=== PATIENT | female | born 1985 | race Caucasian/White ===

== ENCOUNTER 2020-06-23 15:51 | Outpatient (REF) | payer MEDICAID, SELFPAY ==
[2020-06-23 17:07] LABS: HCG Quant, Pregnancy 3681 mIU/mL (1-3)
== END 2020-06-23 16:11 ==
LOC: LBN 15:51
PROVIDERS: Visit Provider Nurse Practitioner Women's Health
DX: Z32.01 Encounter for pregnancy test, result positive (principal)
CPT/HCPCS: 84702

== ENCOUNTER 2020-06-25 02:52 | Outpatient (CLI) | payer MEDICAID, SELFPAY ==
[2020-06-25 13:34] LABS: HCG Quant, Pregnancy 6966 mIU/mL (1-3)
== END 2020-06-25 03:12 ==
PROVIDERS: Visit Provider Nurse Practitioner Women's Health
DX: N96 Recurrent pregnancy loss (principal); Z32.01 Encounter for pregnancy test, result positive
CPT/HCPCS: 36415; 84702

== ENCOUNTER 2020-07-12 00:30 | Outpatient (CLI) | payer MEDICAID, SELFPAY ==
--- NOTE | 2020-07-12 06:45 | DI.US_ITS ---
EXAM: US OB 1ST TRIMESTER CLINICAL HISTORY: viability,THREATENED MISCARRIAGE,020.0 TECHNIQUE: Ultrasound performed using standard protocol. COMPARISON: No exams were available for comparison FINDINGS: Dunia Powell cysts OB ultrasound July 12 Ob ultrasound was performed utilizing 1st trimester pro tocol. There is an abnormal appearing gestational sac with sac size out of proportion to size of the visible pole and a heterogeneous appearance of the trophoblastic.. Bastian-rump length measurem ents are consistent with gestational age of 6 weeks 2 days, no cardiac activity identified. Ovaries are unremarkable in appearance. IMPRESSION: Findings consistent with demise as described above. DATA REPOSITORY:
== END 2020-07-12 00:50 ==
PROVIDERS: Visit Provider Obstetrics & Gynecology
DX: O20.0 Threatened abortion (principal)
CPT/HCPCS: 76801

== ENCOUNTER 2020-07-12 07:27 | Outpatient (CLI) | payer MEDICAID, SELFPAY ==
[2020-07-12 10:48] LABS: Abs Immature Grans 0.05 10^3/uL (0.0-0.06); Absolute Basophil Count 0.04 10^3/uL (0.0-0.2); Absolute Lymphocyte Count 2.17 10^3/uL (1.2-3.4); Absolute Monocyte Count 0.46 10^3/uL (0.1-0.8); Absolute Neutrophil Count 6.47 10^3/uL (1.2-6.7); Basophils % 0.4; HCT 41.9 % (36.0-46.0); HGB 13.6 g/dL (11.2-15.7); Immature Grans % 0.5; Lymphocytes % 23.6; MCH 29.2 pg (27.0-33.0); MCHC 32.5 % (32.0-36.0); MCV 90.1 fL (80-95); MPV 10.4 fL (8.0-11.0); Neutrophils % 70.5; Nucleated RBC 0 %; Platelet Count 213 10^3/uL (130-400); RBC 4.65 10^6/uL (3.93-5.22); RDW 12.4 % (11.7-14.6); RDW-SD 40.6 fL; WBC 9.19 10^3/uL (4.4-10.8)
[2020-07-12 19:12] LABS: COVID-19 RT-PCR UVMMC Result Negative (Negative)
== END 2020-07-12 07:47 ==
PROVIDERS: Visit Provider Obstetrics & Gynecology
DX: O20.0 Threatened abortion (principal)
CPT/HCPCS: 36415; 86850; 86900; 86901; U0003; 76801; 85025

== ENCOUNTER 2020-07-14 06:13 | Day surgery (SDC) | payer MEDICAID, SELFPAY ==
--- NOTE | 2020-07-13 17:18 | W.PM.HP.N ---
Date of service: 07/13/20 Time of Service: 17:18 Assessment and Plan Assessment and plan (1) Recurrent loss: Status: Acute (2) Missed : Status: Acute Assessment and plan: Patient has had 3 previous miscarriages and has a spontaneous miscarriage today. Risks benefits of surgical intervention were explained to the patient including risk of infection, bleeding, injury to surrounding organs, risk of anesthesia. She has experienced miscarriage with dilation and curettage 3 times in the past and is from earlier with this. My plan is for dilation and curettage with suction preformed 07/14/2020. We will do karyotype of the products of conception as well. Her will need to be present for her in light of her emotional status and difficulty with this very difficult situation. History of Present Illness History of Present Illness Chief Complaint: Missed Review of Systems All systems reviewed & are unremarkable except as noted in HPI and below [facility] Medical History Early stage of (Acute) Recurrent loss (Acute) Threatened miscarriage in early (Acute) Surgical History H/O dilation and curettage (Acute) x3 (05/23/18, 01/23/19, 12/08/19 at [facility]) History of ankle surgery (Acute) 2005 and 2009 Family History Father Hypertension Maternal Grandfather Brain cancer Maternal Grandmother Heart disease Mother Hypertension Social History Smoking/Tobacco Use Status: Never Alcohol Intake: never Drug use: Never Substance use type: does not use Current gender identity: female Do you feel safe at home: Yes Do you feel safe in your relationship?: Yes Female Reproductive History Menstrual control method: none History History 3 Para 0 Hx # Term Pregnancies Multiple births Hx # Pregnancies Ectopic pregnancies AB induced Hx Number of Living Children AB spontaneous 3 Meds Home Medications and Allergies Home Medications Medication Instructions Recorded Confirmed Type folic acid 800 mcg tablet 0.8 mg PO DAILY 06/23/20 07/12/20 History prenat.vits,lily,[id number] 1 tab PO DAILY 06/23/20 07/12/20 History Allergies Allergy/AdvReac Type Severity Reaction Status Date / Time amoxicillin AdvReac Hives Verified 07/12/20 13:31 sulfamethoxazole AdvReac Hives Verified 07/12/20 13:31 [From Bactrim] trimethoprim [From Bactrim] AdvReac Hives Verified 07/12/20 13:31 Exam Const General: cooperative, healthy appearing, comfortable and no acute distress Nutritional Appearance: average body habitus and well nourished Orientation: alert HENMT Head: normal to inspection Ears: hearing grossly normal bilaterally Eyes General: appearance normal, both eyes and all related structures Neck Neck: normal visual inspection Thyroid: thyroid normal, not diffusely enlarged and no masses Chest Chest: normal inspection of the chest Breast inspection: normal inspection of the breasts and normal inspection of the axillae Breast palpation: normal palpation of the breasts, normal palpation of the axillae and no axillary lymphadenopathy Resp Effort & Inspection: normal respiratory effort Auscultation: clear to auscultation bilaterally, no rales, no rhonchi and no wheezes Cardio Jugular venous pressure: no JVD Palpation: normal PMI Rate: regular rate Heart Sounds: S1 normal, S2 normal and no murmurs GI Inspection: normal to inspection and non-distended Palpation: soft and no hepatosplenomegaly Auscultation: normal bowel sounds External Female Exam: normal external appearance, normal appearance of the urethra and no lesions Speculum Exam - Vagina: normal appearance of the vagina and normal vaginal discharge Speculum Exam - Cervix: normal appearance of the cervix and nontender Bimanual Exam- Vagina & Uterus: normal bimanual exam, uterine size normal, consistency normal, normal palpation, No tender, non-tender and no cervical motion tenderness Bimanual Exam- Adnexa, other: normal adnexae, no masses and normal Other: Pelvic ultrasound was performed at date of office visit with intrauterine at 6 weeks 5 days without evidence of cardiac activity. Repeat ultrasound performed in diagnostic imaging on 824 confirms irregular gestational sac with intrauterine with no cardiac activity. COVID-19 Screening Have you,or household,traveled outside [place] in last 14 days?: No Had IN PERSON contact w/suspected or confirmed C-19 person: No
[2020-07-14 06:25] VITALS: BP 111/74; PULSE 83; RESP 16; TEMP 36.2; O2SAT 99
[2020-07-14] MEDS: Lactated Ringers 1,000 ML 125 ML IV (06:50)
[2020-07-14] MEDS: DOXYCYCLINE 100 MG in Normal Saline 100 ML IVPB (07:10)
[2020-07-14] MEDS: Silver Nitrate Stick 1 EACH (07:54)
--- NOTE | 2020-07-14 08:00 | POCSPONT_PTH ---
PATIENT: Dunia Powell LOC: [facility] U#:[id number] AGE/SX: 34/F ROOM: RE07/14/[address]: Stephanie Sandra DO : 1985 BED: DIS: 07/14/2020 SPEC #: [id number] RECD: 07/14/20 12:41 STATUS: CINDY REQ #: [id number] JILLIAN: 07/14/20 08:[address]: Stephanie Sandra DEPT: Surgical Specimen RECD BY: Mckenzie Grubbs ENTERED: 07/14/20 12:43 SP TYPE: POCSPONT OTHR DR: Estefani Rodegrs Tissues: 1 - ,SPONTANEOUS CHROMOSOME ANALYSIS PROFILE Procedures: GROSS AND MICRO LEVEL 4 CHROMOSOME ANALYSIS 15-20 CELLS CHROMOSOME ANALYSIS TISSUE CULTURE Comments: [id number] (CYTOGENETICS - [id number])
--- NOTE | 2020-07-14 08:05 | ROE_ITS ---
Date of service: 07/14/20 Time of Service: 08:05 Operative Note Operative Note DATE OF PROCEDURE: 07/14/20 PRE-OP DIAGNOSIS: Missed at 6 weeks, recurrent loss POST-OP DIAGNOSIS: same PROCEDURE: Dilation and curettage with suction SURGEON: Stephanie Sandra ANESTHESIA: GETA ESTIMATED BLOOD LOSS: 20 PATHOLOGY: other (Uterine contents for gross, micro and karyotype) COMPLICATIONS: None Patient was transported to: PACU Patient's condition: stable Implants: None Indications: Missed at 6 weeks Findings: Moderate products of conception Procedure Description: Patient is a 34-year-old female 4 para 0-0-3-0 6 weeks and 3 days. She has a known missed miscarriage. She has a history of recurrent loss with 3 previous dilation curettage around the same gestational age. Ultrasound had confirmed intrauterine demise. Patient had preoperative testing including COVID which was negative. Risks, benefits, and alternatives of the procedure were explained to the patient quitting risk of infection, bleeding, injury to surrounding organs, risk of anesthesia. Full informed consent was obtained. Patient was taken the operating suite with an IV running where she is placed in dorsal supine position. Endotracheal intubation performed for the administration of general anesthesia with ease. She was then placed in the modified dorsal lithotomy position in [facility] stirrups and prepped and draped in the usual sterile fashion. Exam under anesthesia revealed a uterus that was small approximately 6 weeks gestation. Speculum was placed into the vaginal vault and an initially Allis clamp used to grasp the anterior lip of the cervix without good result change to a single-tooth tenaculum. Cervical loss dilated to the point that an 8 Salvadorean suction catheter could be passed with ease. With gentle suction curettage the entire uterine cavity was evacuated. At this point sharp curettage was performed to the point that the coarse cry of the uterus could be felt in all 4 quadrants of the uterine cavity was smooth and regular. A second pass of the suction curette was performed for scant blood present. At this point procedure was terminated single-tooth tenaculum was removed 1 site was non-hemostatic which was cauterized with silver nitrate and found to be hemostatic. Speculum removed and patient taken to recovery room after awakening from anesthesia and returned to the dorsal supine position. Findings: Uterine contents appropriate for gestational age Complications: None apparent EBL: 25 cc
[2020-07-14] MEDS: oxyCODONE 5 mg/Acetaminophen 325 mg TAB PO (08:19)
[2020-07-14 08:42] VITALS: BP 124/74; PULSE 70; RESP 16; TEMP 36.3; O2SAT 100
== END 2020-07-14 09:15 | disposition home or self-care (01) ==
PROVIDERS: PCP Nurse Practitioner Adult Health; Visit Provider Obstetrics & Gynecology
PROC: (CPT 59841; principal; 2020-07-14 07:30)
DX: O02.1 Missed abortion (principal); N96 Recurrent pregnancy loss
CPT/HCPCS: 59820; 88305; NC; 88233; 88262; J1885; J2001; J2250; J2405; J3010

== ENCOUNTER 2020-12-20 04:23 | Outpatient (CLI) | payer MEDICAID, SELFPAY ==
[2020-12-20 15:53] LABS: HCG Quant, Pregnancy 63314 mIU/mL (1-3)
== END 2020-12-20 04:43 ==
PROVIDERS: PCP Nurse Practitioner Adult Health; Visit Provider Obstetrics & Gynecology
DX: O26.21 Pregnancy care for patient with recurrent pregnancy loss, first trimester (principal); Z3A.01 Less than 8 weeks gestation of pregnancy
CPT/HCPCS: 36415; 84144; 84702

== ENCOUNTER 2021-02-04 03:06 | Outpatient (CLI) | payer MEDICAID, SELFPAY ==
[2021-02-04 14:57] LABS: Abs Immature Grans 0.08 10^3/uL (0.0-0.06); Absolute Basophil Count 0.04 10^3/uL (0.0-0.2); Absolute Monocyte Count 0.59 10^3/uL (0.1-0.8); Basophils % 0.4; HCT 38.4 % (36.0-46.0); HGB 13.1 g/dL (11.2-15.7); Immature Grans % 0.7; Lymphocytes % 19.4; MCHC 34.1 % (32.0-36.0); MCV 87.9 fL (80-95); Monocytes % 5.3; Neutrophils % 74.2; Nucleated RBC 0 %; Platelet Count 215 10^3/uL (130-400); RBC 4.37 10^6/uL (3.93-5.22); RDW 12.7 % (11.7-14.6); RDW-SD 41.5 fL; WBC 11.16 10^3/uL (4.4-10.8)
[2021-02-04 15:00] LABS: Absolute Lymphocyte Count 2.17 10^3/uL (1.2-3.4); Absolute Neutrophil Count 8.28 10^3/uL (1.2-6.7); Glucose,1 Hr (Glucola) 101 mg/dL (80-140)
[2021-02-04 15:47] LABS: TSH (W/Ref FT4) 0.25 uIU/mL (0.36-3.74)
[2021-02-04 16:39] LABS: FREE T4 1.09 ng/dL (0.76-1.46)
[2021-02-06 15:57] LABS: Syphilis Total Ab w/Reflex Nonreactive (Nonreactive)
[2021-02-07 10:41] LABS: Hepatitis C Ab w Rflx HCV PCR Negative (Negative)
[2021-02-07 11:11] LABS: Hepatitis B Surface Ag Negative (Negative)
[2021-02-07 11:15] LABS: Rubella IgG Ab (UVM) Positive (See Note); Varicella IgG Antibody Positive (See Note)
[2021-02-07 11:37] LABS: HIV-1/2 Ag & Ab Screen Negative (Negative)
== END 2021-02-04 03:07 | disposition home or self-care (01) ==
LOC: LBO 03:06
PROVIDERS: PCP Nurse Practitioner Adult Health; Visit Provider Advanced Practice Midwife
DX: O09.521 Supervision of elderly multigravida, first trimester (principal); O26.21 Pregnancy care for patient with recurrent pregnancy loss, first trimester; N89.8 Other specified noninflammatory disorders of vagina; Z11.4 Encounter for screening for human immunodeficiency virus [HIV]; Z11.59 Encounter for screening for other viral diseases; Z01.84 Encounter for antibody response examination; R45.0 Nervousness
CPT/HCPCS: 36415; 82950; 86787; 86803; 86850; 86900; 86901; 87340; 87389; 84439; 84443; 85025; 86762; 86780

== ENCOUNTER 2021-02-04 18:30 | Outpatient (REF) | payer MEDICAID, SELFPAY ==
--- NOTE | 2021-02-04 13:30 | PAPFT_PTH ---
PATIENT: Dunia Powell LOC: [facility] U#:[id number] AGE/SX: 35/F ROOM: RE02/04/[address]: Carmen Parsons CNM : 1985 BED: DIS: 02/04/2021 SPEC #: [id number] RECD: 02/04/21 18:35 STATUS: CINDY REQ #: [id number] JILLIAN: 02/04/21 13:[address]: Carmen Parsons DEPT: [facility] Cytology RECD BY: Martine Muir ENTERED: 02/04/21 18:35 SP TYPE: PAPFT OTHR DR: Estefani Rodgers Tissues: 1 - CX/ENDOCX FOR PAP SMEARS Procedures: PAP THIN PREP/UVM Screening HPV DNA PROBE Comments: [id number]
[2021-02-04 19:28] LABS: *AMPHETAMINES SCREEN URINE Negative (Negative); *BARBITURATES SCREEN URINE Negative (Negative); *BENZODIAZEPINES SCREEN URINE Negative (Negative); Cannabinoids THC POSITIVE (Negative); Cocaine Screen,Urine Negative (Negative); METHADONE URINE SCREEN Negative (Negative); OPIATES URINE SCREEN Negative (Negative)
[2021-02-04 19:37] LABS: Tricyclic Antidepressants Negative (Negative)
[2021-02-07 15:49] LABS: Chlamydia Result Negative (Negative); GC Result Negative (Negative)
[2021-02-10 10:09] LABS: Buprenorphine Negative ng/mL (Cutoff: 5.0); Norbuprenorphine Negative ng/mL (Cutoff: 2.5)
== END 2021-02-04 18:31 | disposition home or self-care (01) ==
LOC: LBN 18:30
PROVIDERS: PCP Nurse Practitioner Adult Health; Visit Provider Advanced Practice Midwife
DX: Z34.91 Encounter for supervision of normal pregnancy, unspecified, first trimester (principal); N89.8 Other specified noninflammatory disorders of vagina; Z11.3 Encounter for screening for infections with a predominantly sexual mode of transmission; Z12.4 Encounter for screening for malignant neoplasm of cervix; Z11.51 Encounter for screening for human papillomavirus (HPV)
CPT/HCPCS: 80307; 87491; 87591; 88142; 87086; 87480; 87510; 87624; 87660

== ENCOUNTER 2021-03-09 01:35 | Outpatient (CLI) | payer MEDICAID, SELFPAY ==
--- NOTE | 2021-03-09 07:00 | DI.US_ITS ---
EXAM: US OB 2-3 TRIMESTER W MOD CLINICAL HISTORY: 18 wk anatomy survey,Z3A.13. TECHNIQUE: Transabdominal obstetrical ultrasound was performed. COMPARISON: US US OB 1ST TRIMESTER from 07/12/2020 FINDINGS: There is a single viable intrauterine gestation with cardiac activity identified-153 bpm. Amniotic fluid: There is a normal amount of amniotic fluid. Placental location: The placenta is anterior left fundal grade 0,with no evidence of placenta previa. ANATOMY: A 3 vessel umbilical cord was not able to be identified.. A four-chamber cardiac view was obtained. Right ventricular outflow tract was image. The left ventricular outflow tract was difficult to asses s. There are no obvious abnormalities of the spinal column evident. There is no obvious abnormal ity of the anterior abdominal wall. stomach and urinary bladder are identified and there is no evidence of hydronephrosis. No abnormalities of the upper lip region are identified. No evidence of choroid plexus cysts i n the brain. Dating parameters place this at approximately 18 weeks and 2 days gestational age. BPD measures 18 weeks and 1 day HC measures 18 weeks and 1 day AC measures 18 weeks and 4 days FL measures 18 weeks and 3 days Estimated weight is 239 gm-0 pounds 8 ounces Fetus is at the 63rd percentile on the Hadlock scale. IMPRESSION:: Single viable intrauterine gestation which is approximately 18 weeks and 2 days gestati onal age, implying an GAYLE of August 08, 2021. There are no obvious anomalies evident on today's study. However, on today's study were not abl e to identify three-vessel umbilical cord as well as satisfactory visualization of the left ventricul ar outflow tract. There also no images of the aortic arch obtained. Should be restudied in on e-two weeks. Also for 3D imaging of the face. The placenta is anterior left fundal grade 0 with no evidence of placenta previa. There is a normal amount of amniotic fluid. DATA REPOSITORY:
== END 2021-03-09 01:55 ==
PROVIDERS: PCP Nurse Practitioner Adult Health; Visit Provider Advanced Practice Midwife
DX: Z34.92 Encounter for supervision of normal pregnancy, unspecified, second trimester (principal); Z3A.18 18 weeks gestation of pregnancy
CPT/HCPCS: 76805

== ENCOUNTER 2021-03-15 01:27 | Outpatient (CLI) | payer MEDICAID, SELFPAY ==
--- NOTE | 2021-03-15 | DI.US_ITS ---
EXAM: US OB F/U FACIAL/LVOT/RVOT CLINICAL HISTORY: F/U LVOT,3VC,3D. TECHNIQUE: Transabdominal obstetrical ultrasound performed. COMPARISON: US US OB 2-3 TRIMESTER W MOD from 03/09/2021 FINDINGS: Transabdominal obstetrical ultrasound performed. FINDINGS: Number of fetuses: One. position: Breech Placental location: Anterior. No evidence of previa. Heart Rate: 149BPM The left ventricular outflow track was visualized on the current examination as was a three-vessel co rd. IMPRESSION: 1. Single live intrauterine gestation as above. 2. Visualization of the left ventricular outflow tract and three-vessel cord. DATA REPOSITORY:
== END 2021-03-15 01:47 ==
PROVIDERS: PCP Nurse Practitioner Adult Health; Visit Provider Advanced Practice Midwife
DX: O09.522 Supervision of elderly multigravida, second trimester (principal); Z3A.19 19 weeks gestation of pregnancy
CPT/HCPCS: 76815

== ENCOUNTER 2021-05-20 02:17 | Outpatient (CLI) | payer MEDICAID, SELFPAY ==
[2021-05-20 13:40] LABS: HGB 11.7 g/dL (11.2-15.7); MCH 29.1 pg (27.0-33.0); MCHC 32.5 % (32.0-36.0); MCV 89.6 fL (80-95); MPV 9.8 fL (8.0-11.0); Platelet Count 193 10^3/uL (130-400); RBC 4.02 10^6/uL (3.93-5.22); RDW 12.4 % (11.7-14.6); RDW-SD 40.7 fL; WBC 12.78 10^3/uL (4.4-10.8)
[2021-05-20 13:50] LABS: Glucose,1 Hr (Glucola) 114 mg/dL (80-140)
== END 2021-05-20 02:18 | disposition home or self-care (01) ==
LOC: LBO 02:17
PROVIDERS: PCP Nurse Practitioner Adult Health; Visit Provider Advanced Practice Midwife
DX: Z34.93 Encounter for supervision of normal pregnancy, unspecified, third trimester (principal); Z3A.28 28 weeks gestation of pregnancy
CPT/HCPCS: 36415; 82950; 85027

== ENCOUNTER 2021-05-20 16:11 | Outpatient (REF) | payer MEDICAID, SELFPAY ==
[2021-05-20 17:48] LABS: *AMPHETAMINES SCREEN URINE Negative (Negative); *BARBITURATES SCREEN URINE Negative (Negative); *BENZODIAZEPINES SCREEN URINE Negative (Negative); Cannabinoids THC Negative (Negative); Cocaine Screen,Urine Negative (Negative); METHADONE URINE SCREEN Negative (Negative); OPIATES URINE SCREEN Negative (Negative); Tricyclic Antidepressants Negative (Negative)
[2021-05-24 15:21] VITALS: BP 104/74; PULSE 115; TEMP 36.9
--- NOTE | 2021-05-24 16:02 | W.OBNST ---
Date of service: 05/24/21 Time of Service: 16:02 NST Evaluation Reason for NST Reasons for Nonstress Test: PREVIOUS DEMISE and OTHER, SEE COMMENT Reason for NST Other: cramping since this am Gestational Age Gestational Age in Weeks and Days: 29 Weeks and 0Days Test and Monitor Explained Test/Monitor Explained: Test Explained, Monitor Explained and Patient Verbalized Understanding Vital Signs Blood Pressure: 104/74 Pulse: 115 Temperature: 98.4 F Urine Results Urine Protein: Positive Urine Ketones: Positive Urine Glucose: Negative Urine Blood: Negative NST Information Date on Monitor: 05/24/21 Time on Monitor: 15:20 Date off Monitor: 05/24/21 Time off Monitor: 15:40 Total Time on Monitor: 20 NST Interventions: PO Hydration NST Evaluation Patient States Movement: Present Variability: Moderate 6-25 bpm Accelerations: 10x10 Decelerations: None NST Results: Reactive Note NST Note Note: Dunia presented to for NST due to uterine cramping. No contractions noted, patient is in no acute distress. Denies LOF or vaginal bleeding. Baby has been active. FHR reactive and reassuring. Patient is dehydrated and is reminded to increase fluids and have small frequent meals. Has next office appointment on 06/03/21. Signs of labor reviewed and when / how to contact provider dedicated regional driver reviewed. SIOBHAN NST Reviewed and Verified by: Tamara Navarro
[2021-05-24 16:04] VITALS: BP 104/74; PULSE 115; TEMP 36.9
[2021-05-27 06:18] LABS: Buprenorphine Negative ng/mL (Cutoff: 5.0); Norbuprenorphine Negative ng/mL (Cutoff: 2.5)
== END 2021-05-20 16:12 | disposition home or self-care (01) ==
LOC: LBN 16:11
PROVIDERS: PCP Nurse Practitioner Adult Health; Visit Provider Advanced Practice Midwife
DX: O99.323 Drug use complicating pregnancy, third trimester (principal); Z3A.28 28 weeks gestation of pregnancy
CPT/HCPCS: 80307

== ENCOUNTER 2021-05-24 14:50 | Outpatient (CLI) | payer MEDICAID, SELFPAY | END 2021-05-24 14:51 | disposition home or self-care (01) | LOC: BCD 14:52 | PROVIDERS: PCP Nurse Practitioner Adult Health; Visit Provider Obstetrics & Gynecology | DX: O09.293 Supervision of pregnancy with other poor reproductive or obstetric history, third trimester (principal); O99.323 Drug use complicating pregnancy, third trimester; F19.90 Other psychoactive substance use, unspecified, uncomplicated; Z3A.29 29 weeks gestation of pregnancy; O60.03 Preterm labor without delivery, third trimester | CPT/HCPCS: 59025 ==

== ENCOUNTER 2021-07-18 20:51 | Outpatient (REF) | payer MEDICAID, SELFPAY ==
[2021-07-18 17:39] LABS: *AMPHETAMINES SCREEN URINE Negative (Negative); *BARBITURATES SCREEN URINE Negative (Negative); *BENZODIAZEPINES SCREEN URINE Negative (Negative); Cannabinoids THC Negative (Negative); Cocaine Screen,Urine Negative (Negative); METHADONE URINE SCREEN Negative (Negative); OPIATES URINE SCREEN Negative (Negative)
[2021-07-18 17:47] LABS: Tricyclic Antidepressants Negative (Negative)
[2021-07-23 12:01] LABS: Buprenorphine Negative ng/mL (Cutoff: 5.0); Norbuprenorphine Negative ng/mL (Cutoff: 2.5)
== END 2021-07-18 20:52 | disposition home or self-care (01) ==
LOC: LBN 20:51
PROVIDERS: PCP Nurse Practitioner Adult Health; Visit Provider Advanced Practice Midwife
DX: Z34.93 Encounter for supervision of normal pregnancy, unspecified, third trimester (principal); Z36.85 Encounter for antenatal screening for Streptococcus B; Z3A.36 36 weeks gestation of pregnancy
CPT/HCPCS: 80307; 87081

== ENCOUNTER 2021-08-09 08:19 | Inpatient (IN) | payer MEDICAID, SELFPAY ==
[2021-08-09] VITALS (28 sets, daily range): BP systolic 110–133; BP diastolic 72–81; PULSE 95–153; RESP 16–20; TEMP 36.3–37.1; O2SAT 83–100; BMI 37.7
--- NOTE | 2021-08-09 08:56 | W.PM.OBHPL1 ---
Date of service: 08/09/21 Time of Service: 08:56 Assessment and Plan Assessment and plan (1) PROM with onset of labor within 24 hours of rupture: Status: Acute Assessment and plan: A: 35 yo @ 40+3 wks SROM @ 0600, clear, confirmed Favorable cvx and mild contractions; early labor GBS neg, category 1 tracing Increased risk for SD d/t BMI and primiparous status Low risk for PPH at time of admission P: Admit to BC, CBC, T&S, COVID Swab Expectant management for the morning Will discuss IOL for PROM if labor does not progress Qualifiers: PROM gestational age: full term Qualified Code(s): O42.02 - Full-term premature rupture of membranes, onset of labor within 24 hours of rupture (2) 40 weeks gestation of : Status: Acute OB-HPI Labor/Delivery History of Present Illness Reason for Visit: PROM at Term Chief Complaint: Suspected Rupture of Membranes , Associated Signs and Symptoms of Suspected ROM: Pt called at 0718 this morning to report large gush of fluid at 0600 and subsequent trickles, not in pain but has had just a couple of contractions.. GAYLE Calculator Estimated Delivery Date Method Current WG Current Estimate 08/10/21 LMP (Certain) 39w 6d Other Estimates 08/09/21 Ultrasound #1 40w 0d History of Present Expected Delivery Route/Plan - CNM FOB/ - Cristopher Powell (his first child) BG, GBS negative Plans epidural anesthesia but hopes to delay it as long as she can, she would like to use the tub. Specific Issues/Plan 1. Declines all genetic testing, declination form signed. 2. AMA, declines [facility] level 2 sono/MFM consult - 2a. decided to have US at [facility] 3. BMI=30, early glucola = 101 4. Low dose ASA 81 mg alt w/162 mg, for nulliparity, BMI=30, AMA age 35 5. Hx multiple SAB (x4) in early first trimester 6. Hx LEEP 12 yrs ago, no cvx surveillance indicated per Dr. Fabian @ [facility] 7. UDS + THC at initial OB, repeat 28 weeks, Repeat testing and POSC discussed, she has stopped using. 7a. neg UDS at 28 weeks. 8. Does not intend to get COVID vaccine- partner declines as well. 9. Send placenta to [place] due to history of recurrent loss, Dr. Slade ( will get info) 10. PCN allergy: asked screening questions on 05/20, is low risk for PCN allergy, offered allergy testing at [facility] and pt declines. Assessment: History Reviewed & Current Review of Systems All systems reviewed & are unremarkable except as noted in HPI and below Constitutional Constitutional: Reports as per HPI Cardiovascular Cardiovascular: Reports system reviewed and no additional complaints, except as documented Respiratory Respiratory: Reports system reviewed and no additional complaints, except as documented Gastrointestinal Gastrointestinal: Reports system reviewed and no additional complaints, except as documented Genitourinary Genitourinary: Reports system reviewed and no additional complaints, except as documented and Reports as per HPI Musculoskeletal Musculoskeletal: Reports system reviewed and no additional complaints, except as documented Integumentary/Breasts Skin/Breast: Reports system reviewed and no additional complaints, except as documented Neurologic Neurologic: Reports system reviewed and no additional complaints, except as documented Psychiatric Psychiatric: Reports system reviewed and no additional complaints, except as documented [facility] Medical History (Updated 08/09/21 @ 08:57 by Maria Teresa Parsons) Cephalgia Early stage of Grief reaction Missed Recurrent loss Threatened miscarriage in early Surgical History H/O dilation and curettage x3 (05/23/18, 01/23/19, 12/08/19 at [facility]) History of ankle surgery 2005 and 2009, left Family History Father Hypertension Maternal Grandfather Brain cancer Maternal Grandmother Heart disease Mother Hypertension Social History Smoking/Tobacco Use Status: Never Smoking risk assessment performed?: Yes Alcohol Intake: never Drug use: Never Substance use type: does not use Current gender identity: female Do you feel safe at home: Yes Do you feel safe in your relationship?: Yes Female Reproductive History Menstrual control method: none History History 5 Para 0 Hx # Term Pregnancies 0 Multiple births 0 Hx # Pregnancies 0 Ectopic pregnancies 0 AB induced 0 Hx Number of Living Children 0 AB spontaneous 4 Meds Allergies and Home Medications Allergies Allergy/AdvReac Type Severity Reaction Status Date / Time amoxicillin AdvReac Hives Verified 08/01/21 14:37 sulfamethoxazole AdvReac Hives Verified 08/01/21 14:37 [From Bactrim] trimethoprim [From Bactrim] AdvReac Hives Verified 08/01/21 14:37 Home Medications Medication Instructions Recorded Confirmed Type prenat.vits,lily,hrp-tcmz-lgquu 1 tab PO DAILY 12/20/20 08/09/21 History aspirin 81 mg tablet,delayed 81 mg PO DAILY #90 tab 02/04/21 08/09/21 Rx release Exam Physical Exam Vital signs: 112/72, 110, temp 98.2 Vital Signs Reviewed: Yes Constitutional Constitutional: no acute distress Detailed Labor and Delivery Exam Dilation: 2 Effacement (%): 100 station: -3 Cervix position: mid Consistency: soft Barrios Score: Cervical Points Exam 0 1 2 3 Dilation Closed 1-2cm 3-4 cm 5-6cm Effacement 0-30% 40-50% 60-70% 80% Consistency Firm Medium Soft Station -3 -2 -1,0 +1,+2 Position Posterior Mid Anterior BARRIOS Score(Cervical Ripeness Score): 7 Amniotic Membrane Status: Ruptured Rupture Method: Spontaneous Amniotic Fluid: Clear Pooling: Negative Nitrazine: Positive Ferning: Present Contraction Frequency(min): irregular, q 3-5 Contraction Duration(sec): 40-50 Contraction Intensity: Mild Fetus A Heart Rate Baseline: 145 Monitor Accelerations: 15 X 15 Monitor Decelerations: None Variability: Moderate (6-25 BPM) Presentation: Cephalic Categories: Category I Est. Weight: 8 lb 9.568 oz Est. Weight: 3900 gms Date of Membrane Rupture: 08/09/21 Time of Membrane Rupture: 06:00 HEENT Exam HEENT Exam: Normal Neck Exam Neck Exam: Normal Chest/Brest/Axilla Exam Chest Exam: Normal Breast Exam Breast Exam: Not Done Respiratory Exam Respiratory Exam: Normal Cardiovascular Exam Cardiovascular Exam: Normal Abdominal Exam Abdominal Exam: Normal (Gravid) Rectal Exam Rectal Exam: Normal Exam Exam: Normal Extremities Exam Extremities Exam: Normal Back/Spine/Pelvis Exam Back Exam: Normal Pelvis Adequate: Yes Skin Exam Skin Exam: Normal Neurological Exam Neurological Exam: Normal Psychiatric Exam Psychiatric Exam: Normal Results Results Group Beta Strep: Negative Blood Type: O+ Rubella Status: Immune Varicella Immunity: Immune Risk Assessment Risk for Shoulder Dystocia Historical/Initial OB: POSITIVE FOR: Pre- BMI>30; NEGATIVE FOR: Pelvic Abnormality, Previous Shoulder Dystocia or Previous Macrosomia 40 Weeks: NEGATIVE FOR: EFW> 4500 gms, Maternal Weight Gain >40lb or Post Dates Increased Risk?: Yes Counseling: increased risk due to primiparous status, elevated BMI Delivery Plan @ 40 wks: SPont labor, Risk for Pre-Eclampsia Daily Dose ASA Indicated: Yes Date Initiated/Initials: 02/04, advised to begin low dose ASA. jk Yes, if one or more: NEGATIVE FOR: Hx Pre-E/Gest HTN, Chronic HTN, Multiple Gestation, Pre-gestational DM, Renal Disease, Systemic Lupus or APA Syndrome Yes, if 2 or more: POSITIVE FOR: Nulliparity, Age>= 35 yrs and BMI>30; NEGATIVE FOR: >10yr btwn pregnancies, ethinicty, Mother/Sister w/ Pre-E or Previous IUGR Risk for Post- Hemorrhage Initial: NEGATIVE FOR: Multiple Gestation, Previous PPH, Known Clotting Deficiency, Grand Multiparity or Anticoagulation At Risk?: No Interventions: Risk level may change if pt has long labor or requires induction Counseled re: Active Management: Yes Risks Reviewed Risks Reviewed Upon Admission: Yes
[2021-08-09 09:00] LABS: HCT 33.2 % (36.0-46.0); HGB 10.5 g/dL (11.2-15.7); MCH 25.2 pg (27.0-33.0); MCHC 31.6 % (32.0-36.0); MCV 79.6 fL (80-95); MPV 9.8 fL (8.0-11.0); Platelet Count 219 10^3/uL (130-400); RBC 4.17 10^6/uL (3.93-5.22); RDW-SD 39.9 fL; WBC 14.91 10^3/uL (4.4-10.8)
[2021-08-09 09:18] LABS: Source Nasal/Nares
[2021-08-09 11:51] LABS: COVID-19 PCR Negative (Negative)
--- NOTE | 2021-08-09 16:26 | PGE_ITS ---
Date of service: 08/09/21 Time of Service: 16:27 Informed Consent Informed Consent: Regional Anesthesia and Risk,Benefits,Alternatives Discussed Pelvic Exam Dilation: 2 Effacement (%): 100 station: -3 Consistency: soft Contractions Monitor Mode: External Contraction Frequency(min): q2-4 Contraction Duration(sec): 60 Intensity: Mild/Moderate Fetus A Monitor: External (US) Heart Rate Baseline: 135 Presentation: Cephalic Variability: Moderate (6-25 BPM) Categories: Category I Accelerations: 15 X 15 Decelerations: None Amniotic Membrane Status: Ruptured (since 06) Rupture Method: Spontaneous Assessment and Plan Assessment and plan (1) PROM with onset of labor within 24 hours of rupture: Status: Acute Assessment and plan: A: Primipara, PROM at term x10 hrs Early labor, beginning to intensify No cvx change yet P: Options in pain management reviewed Pt would like regional anesthesia after a shower and a snack Will page WATCH CRYSTAL GRINDER after IV access is established Dr. Medrano consulting Qualifiers: PROM gestational age: full term Qualified Code(s): O42.02 - Full-term premature rupture of membranes, onset of labor within 24 hours of rupture Objective Abnormal lab results 08/09/21 Range/Units 08:45 WBC 14.91 H (4.4-10.8) 10^3/uL Hgb 10.5 L (11.2-15.7) g/dL Hct 33.2 L (36.0-46.0) % MCV 79.6 L (80-95) fL MCH 25.2 L (27.0-33.0) pg MCHC 31.6 L (32.0-36.0) % Temp Pulse Resp BP Pulse Ox 98.4 F 98 H 17 115/77 100 08/09/21 16:17 08/09/21 16:17 08/09/21 11:31 08/09/21 16:17 08/09/21 11:31 Laboratory Results WBC 14.91 10^3/uL (4.4-10.8) H 08/09/21 08:45 RBC 4.17 10^6/uL (3.93-5.22) 08/09/21 08:45 Hgb 10.5 g/dL (11.2-15.7) L 08/09/21 08:45 Hct 33.2 % (36.0-46.0) L 08/09/21 08:45 MCV 79.6 fL (80-95) L 08/09/21 08:45 MCH 25.2 pg (27.0-33.0) L 08/09/21 08:45 MCHC 31.6 % (32.0-36.0) L 08/09/21 08:45 RDW 14.0 % (11.7-14.6) 08/09/21 08:45 Plt Count 219 10^3/uL (130-400) 08/09/21 08:45 MPV 9.8 fL (8.0-11.0) 08/09/21 08:45 COVID-19 Source Nasal/Nares 08/09/21 09:02 SARS-CoV-2 (PCR) Negative (Negative) 08/09/21 09:02 Patient ABO/Rh O Positive 08/09/21 08:45 Antibody Screen NEGATIVE 08/09/21 08:45 Subjective Interval history since last seen: Contractions became more intense, painful and frequent since 1500, is thinking she would like an epidural soon, nitrous is not very helpful
[2021-08-09] MEDS: Normal Saline Flush 10 ML SYR (17:50)
[2021-08-09] MEDS: Lactated Ringers 500 ML 999 ML IV (18:12)
--- NOTE | 2021-08-09 18:13 | W.ANESPRE ---
General Info Date of Service Date Performed: 08/09/21 Height: 5 ft 8 in Weight: 112.5 kg Body Mass Index (BMI): 37.7 Meds Allergies and Home Medications Allergies Allergy/AdvReac Type Severity Reaction Status Date / Time amoxicillin AdvReac Hives Verified 08/01/21 14:37 sulfamethoxazole AdvReac Hives Verified 08/01/21 14:37 [From Bactrim] trimethoprim [From Bactrim] AdvReac Hives Verified 08/01/21 14:37 Home Medication Medication Instructions Recorded prenat.vits,lily,[id number]-[id number] 1 tab PO DAILY 12/20/20 aspirin 81 mg tablet,delayed 81 mg PO DAILY #90 tab 02/04/21 release Current Visit Medications: Current Medications Generic Name Dose Route Start Last Admin Trade Name Freq PRN Reason Stop Dose Admin Bupivacaine HCl 0 ml 08/09/21 18:05 Bupivacaine 0.25% Pres-Free 10 Ml Vial EP 08/09/21 18:06 NOW ONE Diphenhydramine HCl 25 mg 08/09/21 18:03 Diphenhydramine 50 Mg/Ml Vial IVP Q6H PRN PRN Persistent pruritis face/trunk Ephedrine Sulfate 5 mg 08/09/21 18:03 Ephedrine 50 Mg/Ml Vial IVP DIRECTED PRN Fentanyl 0 mcg 08/09/21 18:05 Fentanyl 100 Mcg/2 Ml Vial EP 08/09/21 18:06 NOW ONE Fentanyl/Ropivacaine 200 ml 08/09/21 18:15 Fentanyl/Ropivacaine 2 Mcg/Ml And 0.1% 200 Ml Cadd Cassette EP DIRECTED MARIS Fentanyl/Ropivacaine 200 ml 08/09/21 18:15 Fentanyl/Ropivacaine 2 Mcg/Ml And 0.1% 200 Ml Cadd Cassette EP DIRECTED MARIS Sodium Chloride 500 mls @ 0 mls/hr 08/09/21 17:47 Saline 500ml Bag IV PRN PRN As Directed Ringer's Solution 250 mls @ 500 mls/hr 08/09/21 18:03 IV 08/09/21 18:32 BOLUS ONE Nalbuphine HCl 5 mg/ Sodium 50.5 mls @ 100 mls/hr 08/09/21 18:03 Chloride IVPB Q3H PRN PRN Pruritis Ringer's Solution 500 mls @ 500 mls/hr 08/09/21 18:05 IV 08/09/21 19:04 BOLUS ONE IV Miscellaneous Supplies 1 each 08/09/21 18:00 Iv Access IV DIRECTED [facility] IV Miscellaneous Supplies 1 each 08/09/21 18:15 Iv Access IV DIRECTED [facility] Naloxone HCl 0 mg 08/09/21 18:03 Naloxone 0.4 Mg/Ml Vial IVP DIRECTED PRN Ondansetron HCl 4 mg 08/09/21 18:03 Ondansetron 4 Mg/2 Ml Vial IVP Q6H PRN PRN Nausea Sodium Chloride 0 ml 08/09/21 17:47 Normal Saline Flush 10 Ml Syr IVP PRN PRN PFSH Active Problems Active Problems: Problem Status Onset Code 40 weeks gestation of Z3A.40 PROM with onset of labor within 24 hours of rupture O42.00 Allergy to amoxicillin Z88.0 Positive urine drug screen R82.5 Cephalgia R51 Grief reaction F43.21 Recurrent loss N96 Medical History Medical History (Updated 08/09/21 @ 16:15 by Maria Teresa Parsons) 13 weeks gestation of 28 weeks gestation of Cephalgia Early stage of Grief reaction Missed Recurrent loss Threatened miscarriage in early Vaginal discharge in in second trimester Surgical History Surgical History H/O dilation and curettage x3 (05/23/18, 01/23/19, 12/08/19 at [facility]) History of ankle surgery 2005 and 2009, left Tobacco Smoking/Tobacco Use Status: Never Alcohol Alcohol Intake: never Substance Use Substance use: Never Substance use type: does not use Prental History History 5 Para 0 Hx # Term Pregnancies 0 Multiple births 0 Hx # Pregnancies 0 Ectopic pregnancies 0 AB induced 0 Hx Number of Living Children 0 AB spontaneous 4 Vital Signs and Lab Results Vital Signs Most Recent Vital Signs in EMR: Most Recent Vital Signs Temp Pulse Resp BP Pulse Ox 36.6 C 98 H 17 115/77 100 08/09/21 17:35 08/09/21 16:17 08/09/21 11:31 08/09/21 16:17 08/09/21 11:31 Lab Results Result Diagrams: 08/09/21 08:45 Blood Type / Crossmatch: Patient ABO/Rh O Positive 08/09/21 08:45 08/09/21 Antibody Screen NEGATIVE 08/09/21 08:45 08/09/21 Complete Blood Count: White Blood Count 14.91 10^3/uL (4.4-10.8) H 08/09/21 08:45 08/09/21 Red Blood Count 4.17 10^6/uL (3.93-5.22) 08/09/21 08:45 08/09/21 Hemoglobin 10.5 g/dL (11.2-15.7) L 08/09/21 08:45 08/09/21 Hematocrit 33.2 % (36.0-46.0) L 08/09/21 08:45 08/09/21 Platelet Count 219 10^3/uL (130-400) 08/09/21 08:45 08/09/21 Complete Metabolic Panel: No Data to Display Liver Function Panel: No Data to Display Coagulation Panel: No Data to Display Cardiac Panel: No Data to Display Arterial Blood Gas: No Data to Display Venous Blood Gas: No Data to Display Pancreas Panel: No Data to Display Thyroid Panel: No Data to Display Infectious Disease: Coronavirus (COVID-19)(PCR) Negative (Negative) 08/09/21 09:02 08/09/21 Coronavirus 2019 Source Nasal/Nares 08/09/21 09:02 08/09/21 Blood Cultures: No Data to Display Toxicology Panel: Urine Amphetamines Screen Negative (Negative) 07/18/21 09:10 07/18/21 Urine Benzodiazepines Screen Negative (Negative) 07/18/21 09:10 07/18/21 Urine Barbiturates Screen Negative (Negative) 07/18/21 09:10 07/18/21 Urine Cocaine Screen Negative (Negative) 07/18/21 09:10 07/18/21 Urine Methadone Screen Negative (Negative) 07/18/21 09:10 07/18/21 Urine Opiates Screen Negative (Negative) 07/18/21 09:10 07/18/21 Ur Tricyclic Antidepressants Screen Negative (Negative) 07/18/21 09:10 07/18/21 Ur Tetrahydrocannabinol (THC) Scrn Negative (Negative) 07/18/21 09:10 07/18/21 Panel: No Data to Display Anesthesia Assessment and Plan Anesthesia History Personal History: No History of Anesthesia Complications Family History: No Family History of Anesthesia Complications Exercise Tolerance Exercise Tolerance: Metabolic Equivalents>4 Pertinent Negatives Pertinent Negatives: No Symptoms of GERD, No Major Cardiovascular Symptoms or Complaints, No Major Pulmonary Symptoms or Complaints and No History of CVA/TIA Cardiac & Pulmonary Exam Cardiac Exam: Normal S1/S2 Heart Sounds Pulmonary Exam: Clear Bilateral Breath Sounds Airway Exam Known Difficult Airway: No Mallampati Class: 2 Mouth Opening: Normal (> 3cm) Thyromental Distance: Greater than 3 cm Neck Range of Motion: Full ROM Neck Circumference: Normal Teeth Condition: Normal Dentition ASA Classification ASA Score: ASA 2 Emergency Case?: No NPO Status NPO Status: NPO Clears >2 hours, Solids >8 hours Status Status: Confirmed Anesthesia Plan Resuscitation Status: Full Code Anesthesia Technique: Epidural Anesthesia Airway Planned: Natural Airway Pain Management: Surgeon and patient request nerve block Monitors Used: Standard Monitors
[2021-08-09] MEDS: FentaNYL/ROPIvacaine 2 mcg/ml and 0.1% 200 ML CADD Cassette EP (19:50)
--- NOTE | 2021-08-09 20:04 | W.PM.OBNL1 ---
Date of service: 08/09/21 Time of Service: 20:04 Informed Consent Informed Consent: Augmentation of Labor and Risk,Benefits,Alternatives Discussed Pelvic Exam Dilation: 5 Effacement (%): 100 station: -2 Cervix Position: anterior Consistency: soft Vaginal Exam Presentation: Cephalic Contractions Monitor Mode: External Contraction Frequency(min): q2-4 Contraction Duration(sec): 60-70 Intensity: Moderate Fetus A Monitor: External (US) Heart Rate Baseline: 130 Variability: Moderate (6-25 BPM) Categories: Category I Accelerations: 15 X 15 Decelerations: None Amniotic Membrane Status: Ruptured (x14 hrs) Assessment and Plan Assessment and plan (1) PROM with onset of labor within 24 hours of rupture: Status: Acute Assessment and plan: A: Epidural placed to good effect SVE for progress to 5/100% vtx descended to -2 Category 1 tracing P: Will have alfaro placed Encourage pt to rest/sleep Continue to monitor for progress Pitocin augmentation if indicated Qualifiers: PROM gestational age: full term Qualified Code(s): O42.02 - Full-term premature rupture of membranes, onset of labor within 24 hours of rupture Subjective Interval history since last seen: Much more comfortable with epidural in effect, though feels a bit shaky and IV site is uncomfortable Interventions Pain Management Interventions: Epidural Epidural Placed by:: Neftali Burger .
[2021-08-09] MEDS: Lactated Ringers 1,000 ML 125 ML IV (20:45)
[2021-08-09] MEDS: Oxytocin/Normal Saline 30 UNIT/500 ML BAG 2 UNITS IV (20:48)
[2021-08-10] VITALS (97 sets, daily range): BP systolic 106–135; BP diastolic 60–85; PULSE 0–134; RESP 12–18; TEMP 36.3–37.3; O2SAT 85–100
--- NOTE | 2021-08-10 00:50 | PGE_ITS ---
Date of service: 08/10/21 Time of Service: 00:50 Pelvic Exam Dilation: 10 station: -1 Position: TRICIA Vaginal Exam Presentation: Cephalic Contractions Monitor Mode: External Contraction Frequency(min): q 2-3 Contraction Duration(sec): 60 Intensity: Moderate/Strong Fetus A Monitor: External (US) Heart Rate Baseline: 140 Variability: Moderate (6-25 BPM) Categories: Category I Accelerations: 15 X 15 Decelerations: None Amniotic Membrane Status: Ruptured (x19 hrs) Assessment and Plan Assessment and plan (1) PROM with onset of labor within 24 hours of rupture: Status: Acute Assessment and plan: A: 2nd stage labor, awaiting descent maternal discomfort category 1 tracing, pit was at 6, off for tachysystole P: 2nd stage huddle held, encourage laboring down once pt is more comfortable consider IUPC and restart pitocin if indicated resume maternal pushing efforts when head descends or maternal urge increases Qualifiers: PROM gestational age: full term Qualified Code(s): O42.02 - Full-term premature rupture of membranes, onset of labor within 24 hours of rupture Objective Vital Signs Reviewed: Yes Objective Narrative Objective Narrative: SVE by RN at midnight for complete dilation, after pt reported increasing discomfort with pelvic pressure Pt bearing down somewhat involuntarily, so coached pushing was begun, Dewitt catheter was causing discomfort and was removed to encourage maternal efforts CNM exam during maternal effort @ 0045: fully dilated, baby @ -2 and descends to -1 with pushing After about 30 minutes, pt declines to push, turned LLP & used LIBRARY ASSOCIATE to get more comfortable Pt requests anesthesia to return to see if effectiveness can be improved, TRUCK DRIVER'S OFFSIDER paged, Nursing supervisor home energy consultant notified Concept of laboring down discussed with pt, Pt also advised that nml 2nd stage labor can demand 2-4 hours of maternal efforts Maternal temp 99.1, normotensive, maternal pulse 106 Category 1 tracing, though some tachysystole noted once pt repositioned to LLP Pitocin was at 6 mu/min, RN turned pitocin off @ 0110 Subjective Interval history since last seen: Pt rested but did not sleep, began feeling pelvic pressure, feels her epidural is no longer working the epidural is completely gone, reporting increased feeling in her feet and legs, requesting TRUCK DRIVER'S OFFSIDER to come.
[2021-08-10] MEDS: Acetaminophen 500 MG TAB 1000 MG PO (02:07)
--- NOTE | 2021-08-10 02:48 | W.ANESNEU ---
Epidural/Spinal Catheter Date Performed: 08/09/21 Procedure Start: 18:44 Procedure Stop: 19:02 Requesting Provider: Maria Teresa Parsons Procedure Location: Obstetrics Reason Performed: Labor Epidural Standard Monitors Applied: Blood Pressure and SpO2 Patient Position: Sitting Sedation Given (Indicate Dose Given): No Sedation given Patient Mental Status: Awake Sterility: Hand Hygiene, Surgical Cap, Surgical Mask, Sterile Gloves, Sterile Drape/Sheet and Chlorhexidine Procedure Location: L2-L3 Interspace Epidural Needle: Tuohy 17 Guage Needle Length: 3.5 Inch Needle Approach: Midline Epidural Procedure: Skin Prepped, Sterile Drape Placed, 1% Lidocaine to skin and subcutaneous tissue with 25G needle, Tuohy Needle placed, CORINA to Saline Used, Epidural Catheter Placed, Negative Heme and Negative CSF Flow Catheter Placed?: Catheter Placed Test Dose (Indicate Dose Given): 5ml 1.5% Lidocaine with 1:200K Epinephrine Given and Negative Test Dose Loss of Resistance Depth (cm): 7 Catheter depth at skin (cm): 13 Dressing: Sorbaview Dressing Placed, Mastisol Used and Dressing reinforced with Tape Epidural Provider Bolus (Indicate Dose Given): Total bolus dose given in 3-5 ml divided doses and Total Ropivacaine 0.1% with Fentanyl 2mcg/ml Given from pump (ml) Dose:: 10 Additives (Indicate Dose Given ): None Infusion Medication: Medication Infusion Began Medication Infusion: Ropivacaine 0.1% with Fentanyl 2mcg/ml Maintenance Infusion Rate (ml/hour): 12 PCEA Bolus Dose (ml): 5 Block Level: T10 Paresthesia: None Ultrasound: Not Used Number of Attempts (See previous attempts in note section): 1 Procedure Tolerated: No Complications Procedure Outcome: Successful Performed By: Zach Diaz Supervised By: Neftali Burger
--- NOTE | 2021-08-10 02:51 | PDOC.ANES ---
Date of service: 08/10/21 Time of Service: 01:40 Anesthesia Note Report Anesthesia Note: Anesthesia called to bedside for increasing pain. patient is fully dilated. Per Clarissa Parsons patient was pushing for a period and then stopped stating pain was intense and that her epidural was completely gone. Evaluated at bedside and dressing found to be intact, rate is same as previous, catheter remains at 13 cm. Assessed level of block and found to be L3 to L4 with alcohol swab bilaterally. I discussed options with the patient and her family member and decided to attempt a bolus of 2% lidocaine through the epidural. Patient was monitored and bolused and block density intensified bilaterally with increase in height to cover contractions (T10 to T9 dermatomal level). I discussed my interpretation of this result with the patient, mainly appropriate placement and patency of catheter. I increased the patient epidural infusion to 14 ml/hr with 7 ml bolus. I educated and discussed appropriate expectations for labor epidural therapy. I left patient in care of OB RN and then reassessed two more times prior to leaving the unit. Coordinated care with Clarissa Parsons prior to leaving unit.
--- NOTE | 2021-08-10 03:04 | W.PM.OBNL1 ---
Date of service: 08/10/21 Time of Service: 03:04 Informed Consent Informed Consent: Augmentation of Labor Pelvic Exam Dilation: 10 station: -1 Vaginal Exam Presentation: Cephalic Contractions Contraction Frequency(min): q2-4 Contraction Duration(sec): 50-70 Intensity: Moderate/Strong Fetus A Monitor: External (US) Heart Rate Baseline: 140 Variability: Moderate (6-25 BPM) Categories: Category I Accelerations: 15 X 15 Decelerations: None Amniotic Membrane Status: Ruptured (x21 hrs) Assessment and Plan Assessment and plan (1) PROM with onset of labor within 24 hours of rupture: Status: Acute Assessment and plan: A: 2nd stage, passive descent to -1 station category 1 tracing P: begin coached active maternal pushing efforts continue pitocin infusion per protocol reassess descent in 2 hrs Qualifiers: PROM gestational age: full term Qualified Code(s): O42.02 - Full-term premature rupture of membranes, onset of labor within 24 hours of rupture Objective Vital Signs Reviewed: Yes Objective Narrative Objective Narrative: CATTLE EXAMINER on unit, was able to improve pt's comfort level Pt rested well in LLP Plan at 2nd second stage huddle: reassessment of station @ 0300 and begin active pushing head at -1, movement palpable with maternal effort, pelvimetry adequate Pitocin was restarted and is currently at 6 mu/min Category 1 tracing Subjective Interval history since last seen: Much more comfortable, unable to tell if she is pancho or not, was able to doze off for a brief nap and feels better. Results Abnormal Lab Findings:
[2021-08-10] MEDS: FentaNYL/ROPIvacaine 2 mcg/ml and 0.1% 200 ML CADD Cassette EP (04:02)
--- NOTE | 2021-08-10 05:21 | PGE_ITS ---
Date of service: 08/10/21 Time of Service: 05:21 Pelvic Exam Dilation: 10 station: 0 Vaginal Exam Presentation: Cephalic Contractions Contraction Frequency(min): irregular Contraction Duration(sec): q 2-5 Intensity: Moderate/Strong Fetus A Monitor: External (US) (Pt declined FSE) Heart Rate Baseline: 140 Variability: Moderate (6-25 BPM) Categories: Category II Accelerations: 15 X 15 Decelerations: Prolonged (isolated decel of 4 minutes: drop to 70's with 3 minute return to baseline) Amniotic Membrane Status: Ruptured Assessment and Plan Assessment and plan (1) PROM with onset of labor within 24 hours of rupture: Status: Acute Assessment and plan: A: Slow progress of descent in 2nd stage Prolonged 2nd stage, now fully for 5.5 hrs Pitocin off for prolonged decel now resolved back to category 1 Maternal fatigue P: Dr. Medrano notified of pt status Will be in to evaluate for route of delivery Qualifiers: PROM gestational age: full term Qualified Code(s): O42.02 - Full-term premature rupture of membranes, onset of labor within 24 hours of rupture Objective Vital Signs Reviewed: Yes Objective Narrative Objective Narrative: Strong maternal efforts x 2+ hrs with coaching, feet up on squat bar, pulling on sheet for leverage Category 1 tracing throughout until 514 when isolated 4 minute decel occured; pitocin turned off Had recommended to pt FSE application earlier for improved FHT tracking, pt declined FSE use descent to 0 station at rest, scant caput, with maternal effort descends to +1 Pt has continued to use PRESCHOOL PROGRAM DIRECTOR despite being discouraged from doing so in order to be able to push more effectively Now pt reporting sore shoulders and is not using arms for leverage, Subjective Interval history since last seen: Arms and shoulders are sore from pulling on handles, states she is tired, reluctant to push anymore. Has felt vaginal burning sensations when pushing or during contractions.
--- NOTE | 2021-08-10 06:14 | W.OBCONSULT ---
Date of service: 08/10/21 Time of Service: 06:14 Assessment and Plan Assessment and plan (1) Arrested active phase of labor: Status: Acute Assessment and plan: Preop counseling: She was informed of the risks of procedure including risk of damage to bowel, bladder, and blood vessels during the time of the delivery. I advised the patient that there may be a himanshu on the baby skin or issues with delivering the head secondary to her arrest of descent I reviewed the risk of infection and the administration of IV Abx prior to the surgery. By virtue of having a LTCS for breech presentation she would be a candidate for a LINDA/ in the future. (2) 40 weeks gestation of : Status: Acute History of Present Illness History of Present Illness Chief Complaint: arrest of descent Narrative: 35 yo @ 40+3 wks with SROM x24hrs who presented to with favorable cervix and mild contractions in the afternoon 08/09/21. She required an epidural for labor analgesia which was redosed once during her labor. Oxytocin infusion was titrated to maximum of 6mu/min with satisfactory contraction pattern. Pt was fully dilated at 0300 this morning and despite excellent maternal expulsive efforts by 0515 the vtx remained at 0 station. Category 1 tracing during night and only one variable deceleration at the time of the 0515 cervical exam. Pt reports I'm done. I have a advised delivery for arrest of descent Consults Consult date: 08/10/21 Requesting physician: Maria Teresa Parsons Review of Systems All systems reviewed & are unremarkable except as noted in HPI and below [facility] Medical History (Updated 08/10/21 @ 06:26 by Marisol Medrano MD) 13 weeks gestation of 28 weeks gestation of Cephalgia Early stage of Grief reaction Missed Recurrent loss Threatened miscarriage in early Vaginal discharge in in second trimester Surgical History H/O dilation and curettage x3 (05/23/18, 01/23/19, 12/08/[address] [facility]) History of ankle surgery 2005 and 2009, left Family History Father Hypertension Maternal Grandfather Brain cancer Maternal Grandmother Heart disease Mother Hypertension Social History Smoking/Tobacco Use Status: Never Smoking risk assessment performed?: Yes Alcohol Intake: never Drug use: Never Substance use type: does not use Current gender identity: female Do you feel safe at home: Yes Do you feel safe in your relationship?: Yes Female Reproductive History Menstrual control method: none History History 5 Para 0 Hx # Term Pregnancies 0 Multiple births 0 Hx # Pregnancies 0 Ectopic pregnancies 0 AB induced 0 Hx Number of Living Children 0 AB spontaneous 4 Exam Const General: no acute distress Nutritional Appearance: obese Orientation: alert, awake and oriented x3 Resp Effort & Inspection: normal respiratory effort Auscultation: clear to auscultation bilaterally Cardio Rate: regular rate Rhythm: regular rhythm GI Inspection: other (Gravid) Other: SVE: Complete station zero with descent to +1 with maternal expulsive efforts. Skin General skin exam: no rashes or lesions noted Extrem General: normal to inspection Psych Appearance: grossly normal Mental Status: other (Discouraged and tearful) Results Last Vital Signs Temp 98.2 F 08/10/21 04:58 Pulse 0 L 08/10/21 06:13 Resp 18 08/10/21 04:58 BP 122/71 08/10/21 04:58 Pulse Ox 100 08/10/21 06:00 Labs Result diagrams: 08/09/21 08:45 Labs: Laboratory Results - last 24 hr 08/09/21 08/09/21 08/09/21 08:20 08:45 08:45 WBC 14.91 H RBC 4.17 Hgb 10.5 L Hct 33.2 L MCV 79.6 L MCH 25.2 L MCHC 31.6 L RDW 14.0 Plt Count 219 MPV 9.8 COVID-19 Source Cancelled SARS-CoV-2 (PCR) Cancelled Patient ABO/Rh O Positive Antibody Screen NEGATIVE 08/09/21 09:02 WBC RBC Hgb Hct MCV MCH MCHC RDW Plt Count MPV COVID-19 Source Nasal/Nares SARS-CoV-2 (PCR) Negative Patient ABO/Rh Antibody Screen
[2021-08-10] MEDS: AZITHROMYCIN 500 MG in Normal Saline 250 ML 250 MG IVPB (06:33)
[2021-08-10] MEDS: Sodium Citrate 30 ML CUP PO (06:38)
[2021-08-10] MEDS: ceFAZolin 3,000 MG in Normal Saline 100 ML 200 MG IVPB (07:05)
--- NOTE | 2021-08-10 07:35 | PLAC_PTH ---
PATIENT: Dunia Powell LOC: OBS U#:[id number] AGE/SX: 35/F ROOM: OBS.305 RE08/09/[address]: Carmen Parsons CNM : 1985 BED: A DIS: 08/13/2021 SPEC #: [id number] RECD: 08/10/21 12:14 STATUS: CINDY REQ #: [id number] JILLIAN: 08/10/21 07:[address]: Carmen Parsons DEPT: Surgical Specimen RECD BY: Martine Muir ENTERED: 08/10/21 12:25 SP TYPE: PLAC OTHR DR: Estefani Rodgers Tissues: 1 - PLACENTA (3RD TRIMESTER) Procedures: GROSS AND MICRO LEVEL 5 Comments: [id number]
[2021-08-10] MEDS: Oxytocin/Normal Saline 30 UNIT/500 ML BAG 95 UNITS IV (08:00)
--- NOTE | 2021-08-10 08:49 | ROE_ITS ---
Date of service: 08/10/21 Time of Service: 08:50 Operative Note Operative Note DATE OF PROCEDURE: 08/10/21 PRE-OP DIAGNOSIS: IUP @ 40w3d EGA. Arrest of descent. POST-OP DIAGNOSIS: same PROCEDURE: Unscheduled low transverse delivery SURGEON: Marisol Medrano PERSONNEL RESEARCH SCIENTIST: Cong Travis ANESTHESIA TYPE: Spinal Refer to Anesthesia Record ESTIMATED BLOOD LOSS: 1,000 PATHOLOGY: other (placenta to pathology) COMPLICATIONS: None Patient was transported to: PACU Patient's condition: stable Indications: 35 yo @ 40+3 wks with SROM x24hrs who presented to with favorable cervix and mild contractions in the afternoon 08/09/21. She required an epidural for labor analgesia which was redosed once during her labor. Oxytocin infusion was titrated to maximum of 6mu/min with satisfactory contraction pattern. Pt was fully dilated at 0300 this morning and despite excellent maternal expulsive efforts by 0515 the vtx remained at 0 station. Findings: Viable female in the TRICIA position. Weight 8 pounds 4.6 ounces. Clear amniotic fluid. Normal uterus, adnexa, and pelvis. Procedure Description: Patient was taken to the operating room she is placed in the sitting position, her epidural catheter removed and spinal anesthesia was administered without difficulty. She was then placed in the dorsal supine position with a leftward tilt. SCDs and a Dewitt catheter to gravity drainage were in place. A vaginal prep with Betadine was performed and the patient was prepped and draped in the usual sterile fashion.Surgical timeout was performed. Patient received preop antibiotics prior to skin incision After a adequate level of anesthesia was achieved a Pfannenstiel skin incision was made approximately 2 cm superior to the pubic symphysis using a scalpel and the underlying subcutaneous tissue dissected using Bovie electrocautery to the level of the rectus fascia. The rectus fascia was then nicked in the midline and the fascial incision extended laterally using curved Wharton scissors. 2 Tiarra clamps were applied to the inferior rectus fascia and the rectus fascia was dissected off of the underlying rectus muscles using Bovie electrocautery and blunt technique. A similar technique was carried out on the superior rectus fascia. Rectus muscles were then in the midline and the peritoneum entered bluntly. The peritoneal incision was extended laterally using blunt technique. The vesicle-uterine peritoneum over lower uterine segment was incised with curved Wharton scissors and the bladder flap created bluntly. Scalpel was used to incise the lower uterine segment in a transverse fashion. The uterine incision was extended bluntly and the amniotic sac was ruptured with clear amniotic fluid noted. A single gloved hand was placed into the uterine cavity and the head was successfully delivered through the uterine incision followed by the trunk and extremities with the assistance of fundal pressure. The cord was doubly clamped and cut and the handed off to the waiting pediatric team. Cord blood was obtained and the placenta was extracted with a combination of fundal massage and gentle cord traction. The uterus was exteriorized cleared of all clots and debris and the uterine incision reapproximated with a running lock suture of 0 Vicryl followed by a second imbricating suture of 0 Vicryl. There was an extension of the uterine incision in a caudal fashion towards the cervix. This was repaired in a separate closure with 0 Vicryl in a single layer. The uterine incision was noted be hemostatic. The uterus was returned to the abdomen and the paracolic gutters cleared of all clots and debris. Uterine incision and the along with the bladder flap and the abdominal wall were all inspected and noted to be hemostatic. Peritoneum was reapproximated with a running suture of 2-0 Vicryl. The rectus fascia was reapproximated with a running suture of 0 Vicryl. space within the subcutaneous tissue closed with a running suture of 2-0 Vicryl. The skin in cision was reapproximated with a subcuticular closure of 4-0 . Skin incision is and sealed with skin glue. The uterus was massaged for any remaining clots and debris's. The patient was transported to recovery area in stable condition. All sponge, lap, and needle counts correct x2.
[2021-08-10] MEDS: Lactated Ringers 1,000 ML 125 ML IV (09:12)
[2021-08-10] MEDS: Acetaminophen 325 MG TAB 650 MG PO (10:40)
[2021-08-10] MEDS: Ketorolac 30 MG/ML VIAL IVP ×3 (10:45→22:04)
--- NOTE | 2021-08-10 11:12 | W.ANESPOSTOP ---
Postoperative Evaluation Date, Time and Location Date Performed: 08/10/21 Time Performed: 11:12 Patient Location: Obstetrics Vital Signs Most Recent Imported Vital Signs: Most Recent Vital Signs Temp Pulse Resp BP Pulse Ox 36.6 C 110 H 18 115/72 100 08/10/21 11:00 08/10/21 11:00 08/10/21 11:00 08/10/21 11:00 08/10/21 11:00 Pain Score Most Recent Pain Score: Most Recent Pain Score Pain Level [Bilateral Abdomen] 0 08/10/21 05:00 Pain Level 7 08/10/21 10:45 Assessment Mental Status: Awake (Alert & Oriented to Patient Baseline) Airway and Respiratory Function: Patent airway with normal (patient baseline) respiratory exam Cardiovascular Function: Hemodynamically Stable Hydration Status: Adequately Hydrated Nausea & Vomiting: No Nausea or Vomiting Pain: Pain is tolerable per patient Peripheral Nerve Block: Patient did not receive a nerve block
[2021-08-10] MEDS: Lactated Ringers 1,000 ML 80 ML IV (16:00)
[2021-08-11 00:24] VITALS: BP 98/63; PULSE 101; RESP 18; TEMP 36.6; O2SAT 97
[2021-08-11] MEDS: Ketorolac 30 MG/ML VIAL IVP (03:59)
[2021-08-11 04:01] VITALS: BP 106/74; PULSE 107; RESP 18; TEMP 36.7; O2SAT 100
[2021-08-11 07:30] LABS: Abs Immature Grans 0.38 10^3/uL (0.0-0.06); Absolute Basophil Count 0.05 10^3/uL (0.0-0.2); Absolute Lymphocyte Count 1.81 10^3/uL (1.2-3.4); Basophils % 0.3; Eosinophils % 0.1; HCT 21.4 % (36.0-46.0); Immature Grans % 2.5; Lymphocytes % 11.7; MCH 25.7 pg (27.0-33.0); MCHC 31.8 % (32.0-36.0); MCV 80.8 fL (80-95); MPV 10.2 fL (8.0-11.0); Monocytes % 7.1; Neutrophils % 78.3; Nucleated RBC 0 %; Platelet Count 166 10^3/uL (130-400); RBC 2.65 10^6/uL (3.93-5.22); RDW 14.2 % (11.7-14.6); RDW-SD 40.9 fL; WBC 15.44 10^3/uL (4.4-10.8)
[2021-08-11 07:33] LABS: Absolute Eosinophil Count 0.02 10^3/uL (0.0-0.7); Absolute Neutrophil Count 12.09 10^3/uL (1.2-6.7)
[2021-08-11 07:35] LABS: HGB 6.8 g/dL (11.2-15.7)
[2021-08-11 07:51] VITALS: BP 109/75; PULSE 100; RESP 16; TEMP 37; O2SAT 100
[2021-08-11] MEDS: Acetaminophen 325 MG TAB 650 MG PO (08:19)
[2021-08-11] MEDS: oxyCODONE 5 mg/Acetaminophen 325 mg TAB PO ×3 (14:45→22:43)
[2021-08-11] MEDS: Docusate Sodium 100 MG CAP PO (15:00)
[2021-08-11] MEDS: Ibuprofen 600 MG TAB PO ×2 (15:00→20:35)
--- NOTE | 2021-08-11 16:41 | OBPPV_ITS ---
Date of service: 08/11/21 Time of Service: 16:42 Assessment and Plan Assessment and plan (1) delivery delivered: Status: Acute Assessment and plan: Postop day 1. Pain controlled. I encouraged patient to use Percocet in addition to NSAIDs for pain. She will have breast-feeding support today. Postop hemoglobin low. Patient is not symptomatic at this time. I recommended expectant management and transfusion only if she develops symptoms. Subjective Subjective Interval history: Postop day 1 after low transverse delivery of a viable female after arrest of descent. Patient reports that her incision is uncomfortable and she has been taking Tylenol in addition to NSAIDs for the discomfort. Able to void spontaneously after Dewitt catheter discontinued. No complaints of dizziness when out of bed. Patient comments: Incisional pain and Tolerating diet Patient's Mood: Appropriate [place] baby status: Doing well and Nursing well [place] feeding status: Exclusively breast feeding Exam Physical Exam Vital signs: Temp Pulse Resp BP Pulse Ox 98.6 F 100 H 16 109/75 100 08/11/21 07:51 08/11/21 07:51 08/11/21 07:51 08/11/21 07:51 08/11/21 07:51 Vital Signs Reviewed: Yes Constitutional Constitutional: no acute distress and obese HEENT Exam HEENT Exam: Not Done Neck Exam Neck Exam: Not Done Respiratory Exam Respiratory Exam: Normal Cardiovascular Exam Cardiovascular Exam: Normal Abdominal Exam Abdomen: Tender (At incision line. Pfannenstiel skin incision is well approximated with skin glue in place no ecchymosis) Fundal Exam Fundus: Below Umbilicus Rectal Exam Rectal Exam: Not Done Extremities Exam Extremity Exam: Normal Back/Spine/Pelvis Exam Back Exam: Not Done Skin Exam Skin Exam: Normal Neurological Exam Neurological Exam: Normal Psychiatric Exam Psychiatric Exam: Normal Results Hemoglobin/Hematocrit: Hgb 6.8 g/dL (11.2-15.7) L* D 08/11/21 07:13 Hct 21.4 % (36.0-46.0) L D 08/11/21 07:13 Abnormal Lab Findings: Abnormal Labs 08/09/21 08/11/21 08:45 07:13 WBC 14.91 H 15.44 H RBC 2.65 L Hgb 10.5 L 6.8 L* D Hct 33.2 L 21.4 L D MCV 79.6 L MCH 25.2 L 25.7 L MCHC 31.6 L 31.8 L Absolute Neutrophils 12.09 H Absolute Monocytes 1.10 H
[2021-08-11 16:55] VITALS: BP 109/78; PULSE 94; RESP 16; TEMP 36.7; O2SAT 99
[2021-08-11 20:35] VITALS: BP 112/77; PULSE 112; RESP 18; TEMP 36.7; O2SAT 100
[2021-08-12 00:15] VITALS: BP 98/72; PULSE 82; RESP 16; TEMP 36.7; O2SAT 98
[2021-08-12] MEDS: oxyCODONE 5 mg/Acetaminophen 325 mg TAB PO ×5 (02:41→22:36)
[2021-08-12] MEDS: Ibuprofen 600 MG TAB PO ×3 (02:42→16:22)
[2021-08-12 03:00] VITALS: BP 99/63; PULSE 93; RESP 18; TEMP 36.7; O2SAT 99
--- NOTE | 2021-08-12 07:33 | W.PM.OBPNV1 ---
Date of service: 08/12/21 Time of Service: 07:33 Assessment and Plan Assessment and plan (1) delivery delivered: Status: Acute Assessment and plan: POD2. Unsure if pt is ready for discharge today. It will depend on her infant's weight and efforts. Subjective Subjective Interval history: POD 2 after primary LTCS for arrest of descent at term. Infant has been with assistance of nipple yu. Patient comments: Incisional pain (requires NSAIDs and Percocet for discomfort) Patient's Mood: Concerned about 's weight loss and that her daughter is sleepy baby status: Nursing well (with nipple yu. Falls asleep easily at the breast.), Rooming in and Strong Bonding Observed feeding status: Exclusively breast feeding Exam Physical Exam Vital signs: Temp Pulse Resp BP Pulse Ox 98.0 F 93 H 18 99/63 L 99 08/12/21 03:00 08/12/21 03:00 08/12/21 03:00 08/12/21 03:00 08/12/21 03:00 Vital Signs Reviewed: Yes Constitutional Constitutional: no acute distress Neck Exam Neck Exam: Normal Respiratory Exam Respiratory Exam: Normal Cardiovascular Exam Cardiovascular Exam: Not Done Abdominal Exam Abdomen: Other (incision clean, dry, intact. No ecchymosis. Skin glue in place.) Fundal Exam Fundus: Below Umbilicus and Firm Rectal Exam Rectal Exam: Not Done Extremities Exam Extremity Exam: Normal and Edema (1+ pre-tibial edema) Back/Spine/Pelvis Exam Back Exam: Not Done Skin Exam Skin Exam: Normal Psychiatric Exam Psychiatric Exam: Normal (Pt reports not sleeping last night - working at her daughter) Results Hemoglobin/Hematocrit: Hgb 6.8 g/dL (11.2-15.7) L* D 08/11/21 07:13 Hct 21.4 % (36.0-46.0) L D 08/11/21 07:13 Abnormal Lab Findings: Abnormal Labs 08/09/21 08/11/21 08:45 07:13 WBC 14.91 H 15.44 H RBC 2.65 L Hgb 10.5 L 6.8 L* D Hct 33.2 L 21.4 L D MCV 79.6 L MCH 25.2 L 25.7 L MCHC 31.6 L 31.8 L Absolute Neutrophils 12.09 H Absolute Monocytes 1.10 H
[2021-08-12] MEDS: Docusate Sodium 100 MG CAP PO (09:10)
[2021-08-12 10:02] VITALS: BP 114/80; PULSE 106; RESP 18; TEMP 36.7
[2021-08-12 12:03] VITALS: BP 114/80; PULSE 106; RESP 20; TEMP 36.7
[2021-08-12 23:57] VITALS: BP 188/80; PULSE 90; RESP 16; TEMP 37; O2SAT 98
[2021-08-13] MEDS: oxyCODONE 5 mg/Acetaminophen 325 mg TAB PO ×3 (02:42→11:19)
[2021-08-13] MEDS: Ibuprofen 600 MG TAB PO ×2 (04:44→10:46)
[2021-08-13 10:22] VITALS: BP 123/88; PULSE 98; RESP 16; TEMP 37.1; O2SAT 97
--- NOTE | 2021-08-13 10:23 | OBPPV_ITS ---
Date of service: 08/13/21 Time of Service: 10:23 Assessment and Plan Assessment and plan (1) delivery delivered: Status: Acute Assessment and plan: Postoperative day #3 status post primary low transverse section for arrest of descent. Working on breast-feeding. Long conversation regarding emotional state and need for sleep. Plan will be for feeding plan for baby so she can have uninterrupted sleep for more than 1- 1/2 hours at a time. Though I do anticipate discharge home today. She will be seen in the office in approximately 1 week Subjective Subjective Interval history: Patient seen and examined this morning. Somewhat tearful. Has not slept well. Working on breast-feeding. We discussed at length plan and the potential for discharge home which she is desirous of. Patient comments: Pain well controlled and Incisional pain [place] baby status: Doing well, Supplemental feeding going well and Strong Bonding Observed [place] feeding status: Breast and formula feeding Exam Physical Exam Vital signs: Temp Pulse Resp BP Pulse Ox 98.6 F 90 16 188/80 H 98 08/12/21 23:57 08/12/21 23:57 08/12/21 23:57 08/12/21 23:57 08/12/21 23:57 Constitutional Constitutional: no acute distress Neck Exam Neck Exam: Normal Respiratory Exam Respiratory Exam: Normal Cardiovascular Exam Cardiovascular Exam: Normal Abdominal Exam Abdomen: Tender Comments: Incision clean, dry, intact Fundal Exam Fundus: Below Umbilicus and Firm Extremities Exam Extremity Exam: Edema (1+, bilateral); negative Calf Tenderness Results Hemoglobin/Hematocrit: Hgb 6.8 g/dL (11.2-15.7) L* D 08/11/21 07:13 Hct 21.4 % (36.0-46.0) L D 08/11/21 07:13 Abnormal Lab Findings: Abnormal Labs 08/09/21 08/11/21 08:45 07:13 WBC 14.91 H 15.44 H RBC 2.65 L Hgb 10.5 L 6.8 L* D Hct 33.2 L 21.4 L D MCV 79.6 L MCH 25.2 L 25.7 L MCHC 31.6 L 31.8 L Absolute Neutrophils 12.09 H Absolute Monocytes 1.10 H
--- NOTE | 2021-08-13 10:32 | DSE_ITS ---
Date of service: 08/13/21 Time of Service: 10:32 DS: Diagnosis Discharge Diagnosis (1) delivery delivered: Status: Acute Discharge Plan Disposition Patient Disposition: HOME Condition: Good Discharge Details Reason For Visit: PROM at Term Admit Date/Time: 08/09/21 08:19 Admit Provider: Maria Teresa Parsons Attending Provider: Maria Teresa Parsons Primary Care Provider: Estefani Rodgers Hospital Course Hospital Course: Patient was admitted with spontaneous rupture of membranes. She progressed through the course of labor to the point that she was completely dilated and pushing. There was no descent and she went for primary section for a viable female infant. Postoperative course was relatively uncomplicated. She did have a mild postoperative anemia which she is asymptomatic for. She is working on breast-feeding and feeding plan for her daughter. She will be discharged home postoperative day #3 Home Meds and New Rx's Prescriptions: New docusate sodium 100 mg tablet 100 mg PO BID PRN PRNQty: 30 RF: 1 oxycodone-acetaminophen [Percocet] 5-325 mg tablet 1 tab PO Q8H PRNQty: 14 RF: 0 ibuprofen 800 mg tablet 800 mg PO Q8H PRNQty: 30 RF: 1 Continued prenat.vits,lily,ens-pnpp-mhanm Tablet 1 tab PO DAILY RF: 0 Discontinued aspirin 81 mg tablet,delayed release (DR/EC) 81 mg PO DAILY Qty: 90 RF: 2 Discharge Instructions Stand Alone Forms: BC Discharge Instruc Activity:: Activity as Tolerated Equipment/Supplies:: No Equipment Needed Diet:: As Tolerated Discharge Orders Discharge Orders: Discharge Order (Routine); Ordered 08/13/21 Ordered By: Stephanie Sandra OB:DS Summary Contraception Discussed Contraception Discussed: No, [place] Gender-Baby A: Female weight: 8 lb 6.394 oz Status at Discharge Functional status at discharge: independent ambulation Overall status at discharge: patient is progressing back to baseline Mental Status: mental status grossly normal Speech and Movement: speech and movement normal Mood: congruent mood Affect: normal affect Exam Physical Exam Vital signs: Temp Pulse Resp BP Pulse Ox 98.8 F 98 H 16 123/88 97 08/13/21 10:22 08/13/21 10:22 08/13/21 10:22 08/13/21 10:22 08/13/21 10:22 Constitutional Comments: See physical examination from progress note dated 08/13/2021 [facility] Medical History (Updated 08/11/21 @ 16:47 by Marisol Medrano MD) 13 weeks gestation of 28 weeks gestation of Cephalgia Early stage of Grief reaction Missed Recurrent loss Threatened miscarriage in early Vaginal discharge in in second trimester Surgical History H/O dilation and curettage x3 (05/23/18, 01/23/19, 12/08/[address] [facility]) History of ankle surgery 2005 and 2009, left Family History Father Hypertension Maternal Grandfather Brain cancer Maternal Grandmother Heart disease Mother Hypertension Social History Smoking/Tobacco Use Status: Never Smoking risk assessment performed?: Yes Alcohol Intake: never Drug use: Never Substance use type: does not use Current gender identity: female Do you feel safe at home: Yes Do you feel safe in your relationship?: Yes Female Reproductive History Menstrual control method: none History History 5 Para 0 Hx # Term Pregnancies 0 Multiple births 0 Hx # Pregnancies 0 Ectopic pregnancies 0 AB induced 0 Hx Number of Living Children 0 AB spontaneous 4 DS: Data Vitals/I&O Vitals and I&O: Vital Signs Temperature 98.8 F 08/13/21 10:22 Pulse 98 H 08/13/21 10:22 Pulse Rhythm Regular 08/13/21 10:23 Respiratory Rate 16 08/13/21 10:22 Respiratory Depth Normal 08/12/21 16:15 Blood Pressure 123/88 08/13/21 10:22 Blood Pressure Mean 99 08/13/21 10:22 Pulse Oximetry 97 08/13/21 10:22 Oxygen Delivery Method Room Air 08/10/21 09:00 Pain Level 3 08/13/21 10:22 Comment 08/10/21 09:30 Intake & Output 08/12/21 08/12/21 08/13/21 11:59 23:59 11:59 Other: Urine Color Dark Nenita
[2021-08-13] MEDS: Docusate Sodium 100 MG CAP PO (10:46)
[2021-08-13 14:18] VITALS: BP 118/85; PULSE 90; RESP 16; TEMP 37; O2SAT 98
== END 2021-08-13 15:45 | disposition home or self-care (01) | DRG 788 ==
PROVIDERS: Obstetrics & Gynecology Gynecology; Admitting Provider Advanced Practice Midwife; PCP Nurse Practitioner Adult Health; Visit Provider Advanced Practice Midwife
PROC: 10D00Z1 Extraction of Products of Conception, Low, Open Approach (ICD-10-PCS; CPT 59514; principal; 2021-08-10 07:45)
DX: O42.02 Full-term premature rupture of membranes, onset of labor within 24 hours of rupture (principal); Z37.0 Single live birth; Z3A.40 40 weeks gestation of pregnancy; O62.1 Secondary uterine inertia; O63.1 Prolonged second stage (of labor)
CPT/HCPCS: 59514; 36415; 85027; 86850; 86900; 86901; 87635; 85025; 88307; J0456; J0690; J1885; J2370; J2405; J3010

== ENCOUNTER 2022-07-04 02:02 | Outpatient (CLI) | payer MEDICAID, SELFPAY ==
--- NOTE | 2022-07-04 13:00 | NS.NUTBLAN_ITS ---
Dunia was referred for weight management education. 36 yo female, post 11 months with depression and anxiety and multiple lost pregnancies. 5'5' 234 lbs, down 12 lbs in last 8 weeks. Weight at : 250 lbs. No longer breast feeding Prepregnancy weight: 190 lbs. Usual Body Weight: 160 lbs Meds: wellbutrin, celexa, effexor Diet recall: skips Breakfast and Lunch often, Home cooked meal at night. Exericse: Rides 4-5 hours once a week. Dunia reports having difficulty losing weight since despite not eating very much. She has had post depression and often only eats once daily. Reports poor sleep. Med chart indicates TSH of .25 (02/04/21), indicating excessive thyroid hormone. Dunia reports feeling n/v in AM on current medications for about 4 weeks. Has had difficulty eating during day. Educated Dunia on weight management strategies such as eating small meals daily, keeping carb intake below 100 grams daily and increasing protein intake to 60-80 g daily. Provided meal plans. Encouraged use of protein bars or shakes for when eating is difficult. Also recommend 2 mile walk daily (stroller or baby roe). Goal is 5 lbs weight loss per month. Goal Wt: 170-180 lbs. Recommend checking TSH domi. No follow up planned at this time. Encouraged Dunia to reach out when she is ready for follow up visit.
== END 2022-07-04 02:03 | disposition home or self-care (01) ==
LOC: DS 02:03
PROVIDERS: PCP Nurse Practitioner Adult Health; Visit Provider Dietitian, Registered
DX: E66.8 Other obesity (principal); F41.8 Other specified anxiety disorders; Z71.3 Dietary counseling and surveillance
CPT/HCPCS: 97802

== ENCOUNTER 2023-03-13 17:37 | Outpatient (CLI) | payer MEDICAID, SELFPAY ==
[2023-03-13 15:49] LABS: Abs Immature Grans 0.03 10^3/uL (0.0-0.06); Absolute Basophil Count 0.04 10^3/uL (0.0-0.2); Absolute Eosinophil Count 0.01 10^3/uL (0.0-0.7); Absolute Lymphocyte Count 3.13 10^3/uL (1.2-3.4); Absolute Monocyte Count 0.61 10^3/uL (0.1-0.8); Absolute Neutrophil Count 5.99 10^3/uL (1.2-6.7); Basophils % 0.4; Eosinophils % 0.1; HCT 43.5 % (36.0-46.0); HGB 14.4 g/dL (11.2-15.7); Immature Grans % 0.3; Lymphocytes % 31.9; MCH 29.3 pg (27.0-33.0); MCHC 33.1 % (32.0-36.0); MCV 89 fL (80-95); MPV 9.9 fL (8.0-11.0); Monocytes % 6.2; Neutrophils % 61.1; Platelet Count 267 10^3/uL (130-400); RBC 4.91 10^6/uL (3.93-5.22); RDW 13.4 % (11.7-14.6); RDW-SD 43.8 fL; WBC 9.81 10^3/uL (4.4-10.8)
[2023-03-13 16:56] LABS: ALT 21 U/L (14-59); AST 12 U/L (15-37); Albumin 4.5 g/dL (3.4-5.0); Alkaline Phosphatase 92 U/L (46-116); Anion Gap 5.3 mmol/L (3-11); BUN 18 mg/dL (7-18); Bilirubin, Total 0.5 mg/dL (0.2-1.0); CO2 30.7 mmol/L (21.0-32.0); CREATININE 0.9 mg/dL (0.55-1.02); Calcium 9.7 mg/dL (8.5-10.1); Chloride 104 mmol/L (98-107); Estimated GFR 84.44 (mL/min/1.73m2); Glucose 100 mg/dL (74-106); Potassium 3.9 mmol/L (3.5-5.1); Sodium 140 mmol/L (136-145); TSH (W/Ref FT4) 0.88 uIU/mL (0.36-3.74); Total Protein 8.3 g/dL (6.4-8.2)
[2023-03-15 10:40] LABS: Prolactin 5.6 ng/mL (See Note)
== END 2023-03-13 17:38 | disposition home or self-care (01) ==
LOC: LBO 17:38
PROVIDERS: PCP Physician Assistant Medical; Visit Provider Obstetrics & Gynecology
DX: N93.8 Other specified abnormal uterine and vaginal bleeding (principal); N92.5 Other specified irregular menstruation; R63.4 Abnormal weight loss; L29.8 Other pruritus
CPT/HCPCS: 36415; 80053; 84146; 84443; 85025

== ENCOUNTER 2023-04-10 01:04 | Outpatient (CLI) | payer MEDICAID, SELFPAY ==
--- NOTE | 2023-04-10 07:00 | DI.US_ITS ---
Exam(s) US PELVIS TRANSVAGINAL EXAM: US PELVIS TRANSVAGINAL CLINICAL HISTORY: anatomy,dysfunctional uterine bleeding,iud,contraception.n93.8,z97.5,z30.9. TECHNIQUE: Transabdominal and transvaginal pelvic ultrasound was performed using standard protocol. COMPARISON: US US OB F/U FACIAL/LVOT/RVOT from 03/15/2021 FINDINGS: UTERUS: Position: Anteverted. Size: 5.4 long by 3.6 AP by 5.6 transverse cm Endometrium: 0.6 cm. Normal for patient's menstrual status. There is an IUD which is in good position . Myometrium: Unremarkable. Cervix: Unremarkable. OVARIES: Right: 2.1 x 1.6 x 1.7 cm Cyst or mass: No suspicious cystic or solid masses. Left: 2.6 x 1.7 x 1.9 cm Cyst or mass: No suspicious cystic or solid masses. DOPPLER: Color: Symmetric and uniform flow to both ovaries. CUL-DE-SAC: Free fluid: None. Other: None. IMPRESSION: 1. Normal-appearing uterus with endometrial stripe within normal limits. 2. IUD is in good position. 3. Unremarkable bilateral ovaries. DATA REPOSITORY:
== END 2023-04-10 01:24 ==
LOC: DI 01:04
PROVIDERS: PCP Physician Assistant Medical; Visit Provider Obstetrics & Gynecology
DX: N93.8 Other specified abnormal uterine and vaginal bleeding (principal); Z30.9 Encounter for contraceptive management, unspecified; Z97.5 Presence of (intrauterine) contraceptive device
CPT/HCPCS: 76830; 76856